=== PATIENT | male | born 1985 | race Caucasian/White ===

== ENCOUNTER 2016-10-18 20:33 | Emergency (ER) | payer OTHER ==
[~2016-10-18] VITALS: Ht 180.3 cm; Wt 64.3 kg
[~2016-10-18 20:33] MED LIST: AMOXICILLIN875 MG PO; BACTRIM,SEPT1 TABLET PO; BENTYL10 MG PO; CIPROFLOXACIN500 M1 PO; DEPAKOTE500 MG PO; DOXYCYCLINE HY100 MG PO; KEFLEX500 MG PO; MOTRIN800 MG PO; NOHOMEMEDS; PERCOCET 5-3251 EACH PO; ROBITUSSIN AC,T10 ML PO; SUBOXONE 12 MG1 EACH SL; SUBOXONE 8 M1 TABLET PO; SUBOXONE 8 MG-1 EAC2 SL; ULTRAM50 MG PO; ZANTAC150 MG PO; ZUBSOLV 8.6-2.1 EACH SL
[2016-10-18] MEDS ORDERED: NAPROXEN500 MG PO (22:56)
[2016-10-18] MEDS ORDERED: FLEXERIL10 MG PO (22:56)
[2016-10-18 23:12] VITALS: BP 115/59
== END 2016-10-18 23:12 | disposition home or self-care (01) ==
LOC: EME 20:33
DX: S30.0XXA Contusion of lower back and pelvis, initial encounter (principal); Y04.2XXA Assault by strike against or bumped into by another person, initial encounter; F17.200 Nicotine dependence, unspecified, uncomplicated
CPT/HCPCS: 99281; 99283